=== PATIENT | female | born 1945 | race Caucasian/White ===

== ENCOUNTER 2022-01-20 13:36 | Emergency (ER) | payer MEDICARE ==
[~2022-01-20 13:36] MED LIST: Iopamidol 370 76% 100 ML VIAL ONE
[2022-01-20 15:13] LABS: #Basophils 0.1 thou/uL (0.0-0.2); #Eosinphils 0.1 thou/uL (0.0-0.7); #Monocytes 0.7 thou/uL (0.11-0.59); %Basophils 0.8 % (0.0-1.0); %Eosinophils 0.4 % (0.0-10.0); %Lymphocytes 12.8 % (21.0-51.0); %Monocytes 4.2 % (0.0-10.0); %Neutrophils 81.8 % (42.0-75.0); Hemoglobin 13.5 g/dL (12.0-16.0); Mean Corpuscular HGB CONC 30.3 g/dL (32.0-36.0); Mean Corpuscular Hemoglobin 22.1 pg (27.0-31.0); Mean Corpuscular Volume 72.7 fL (78.0-98.0); Mean Platelet Volume 6.5 fL (7.4-10.4); Platelet Count 344 thou/uL (130-400); Red Blood Cell (RBC) Count 6.14 mill/uL (4.20-5.40); White Blood Cell (WBC) Count 15.9 thou/uL (4.8-10.8)
[2022-01-20 15:25] LABS: ALT (SGPT) 26 U/L (8-55); AST (SGOT) 20 U/L (5-34); Alkaline Phosphatase 49 U/L (40-110); Anion Gap 17 mmol/L (10-20); BUN (Urea Nitrogen) Less than 4 mg/dL (9.8-20.1); Bilirubin, Total 0.5 mg/dL (0.2-1.2); Calc. Creatinine Clearance 0 mL/min (70-130); Calcium 9.8 mg/dL (7.8-10.44); Carbon Dioxide 25 mmol/L (23-31); Chloride 90 mmol/L (98-107); Globulin 3.1 g/dL (2.4-3.5); Glucose 96 mg/dL (83-110); Potassium 4.2 mmol/L (3.5-5.1); Protein, Total 7.1 g/dL (5.8-8.1); Sodium 128 mmol/L (136-145)
[2022-01-20 15:42] LABS: Microcytosis SLIGHT = 6-15 cells (100X) (0-5/hpf); Polychromasia SLIGHT = 2-3 cells (100X) (0-2/hpf)
[2022-01-20 15:51] LABS: Prothrombin Time 13.1 sec (12.0-14.7)
[2022-01-20] MEDS ORDERED: HYDROcodone/Acetaminophen 5/325 mg Tablet ONE (16:21)
[2022-01-20] MEDS ORDERED: Sodium Chloride 0.9% 1,000 ML ONE (17:19)
[2022-01-20] MEDS ORDERED: Morphine 10 MG/ML VIAL ONE (17:19)
[2022-01-20] MEDS ORDERED: Morphine 4 MG/ML VIAL ONE ×2 (17:20→22:47)
[2022-01-20] MEDS ORDERED: Morphine 2 MG/ML VIAL ONE (17:21)
[2022-01-20] MEDS ORDERED: Ondansetron PF 4 MG/2 ML Vial ONE (18:12)
[2022-01-20 21:53] LABS: Bilirubin Negative (Negative); Blood, Urine Trace (Negative); Clarity Clear (Clear); Glucose, Urine (Dipstick) Negative (Negative); Ketone, Urine 40 mg/dL (Negative); Leukocyte Negative (Negative); Nitrite Positive (Negative); Protein, Urine (Dipstick) Negative (Neg-Trace); Urobilinogen 0.2 mg/dL (Less than 2)
[2022-01-20 22:00] LABS: RBC/HPF 0-3 HPF (0-3); Squamous Epithelial 0-3 HPF (0-3); WBC/HPF 0-3 HPF (0-3)
[2022-01-20] MEDS ORDERED: Sodium Chloride 0.9% 100 ML ONE (22:31)
[2022-01-20] MEDS ORDERED: cefTRIAXone\\ROCEPHIN 1 GM VIAL ONE (22:31)
== END 2022-01-20 22:57 | disposition short-term general hospital (02) ==
LOC: MADERS 13:36
DX: E87.1 Hypo-osmolality and hyponatremia (principal); E78.5 Hyperlipidemia, unspecified; W19.XXXA Unspecified fall, initial encounter
CPT/HCPCS: 36415; 70450; 71045; 71260; 72125; 72170; 74177; 80053; 81003; 81015; 83605; 85025; 85610; 87077; 87086; 87186; 96361; 96374; 96375; 96376; G0390; J0696; J2270; J2405; J3490; J7050; Q9967

== ENCOUNTER 2022-01-25 15:25 | Inpatient (IN) | payer MEDICARE ==
[2022-01-25] MEDS ORDERED: Lantiseptic Ointment 130 GM JAR TOP PRN (20:59)
[2022-01-25] MEDS: Benztropine 1 MG TAB PO SCH (21:45)
[2022-01-25] MEDS: OXcarbazepine 150 MG TAB PO SCH (21:46)
[2022-01-25] MEDS: Atorvastatin Calcium 10 MG TAB PO SCH (21:47)
[2022-01-25] MEDS: Lorazepam 1 MG TAB PO PRN (21:48)
[2022-01-25] MEDS: Lantiseptic Ointment 130 GM JAR TOP SCH (23:45)
[2022-01-26 05:26] LABS: #Basophils 0.1 thou/uL (0.0-0.2); #Eosinphils 0.2 thou/uL (0.0-0.7); #Lymphocytes 2.9 thou/uL (1.20-3.40); #Monocytes 0.7 thou/uL (0.11-0.59); #Neutrophils 3.8 thou/uL (1.40-6.50); %Basophils 1.2 % (0.0-1.0); %Eosinophils 3.1 % (0.0-10.0); %Lymphocytes 37.9 % (21.0-51.0); %Monocytes 8.4 % (0.0-10.0); %Neutrophils 49.5 % (42.0-75.0); Hemoglobin 10.6 g/dL (12.0-16.0); Mean Corpuscular Hemoglobin 22.3 pg (27.0-31.0); Mean Corpuscular Volume 71.8 fL (78.0-98.0); Mean Platelet Volume 6.6 fL (7.4-10.4); Platelet Count 261 thou/uL (130-400); RBC Distribution Width 13.9 % (11.5-14.5); Red Blood Cell (RBC) Count 4.77 mill/uL (4.20-5.40); White Blood Cell (WBC) Count 7.8 thou/uL (4.8-10.8)
[2022-01-26 05:27] LABS: ALT (SGPT) 24 U/L (8-55); AST (SGOT) 16 U/L (5-34); Albumin 3.4 g/dL (3.4-4.8); Alkaline Phosphatase 38 U/L (40-110); Anion Gap 15 mmol/L (10-20); Anisocytosis SLIGHT = 6-15 cells (100X) (0-5/hpf); BUN (Urea Nitrogen) Less than 4 mg/dL (9.8-20.1); Bilirubin, Total 0.4 mg/dL (0.2-1.2); Calc. Creatinine Clearance 145 mL/min (70-130); Calcium 8.7 mg/dL (7.8-10.44); Carbon Dioxide 25 mmol/L (23-31); Chloride 94 mmol/L (98-107); Globulin 2.4 g/dL (2.4-3.5); Glucose 90 mg/dL (83-110); Hypochromia SLIGHT = 6-15 cells (100X) (0-5/hpf); MDiff Complete? YES; Microcytosis SLIGHT = 6-15 cells (100X) (0-5/hpf); Platelet Morphology Comment Appears Adequate; Potassium 3.3 mmol/L (3.5-5.1); Protein, Total 5.8 g/dL (5.8-8.1); Sodium 131 mmol/L (136-145)
[2022-01-26] MEDS: Levothyroxine Sodium 50 MCG TAB PO SCH (05:37)
[2022-01-26] MEDS: Lantiseptic Ointment 130 GM JAR TOP SCH ×2 (08:11→21:34)
[2022-01-26] MEDS: OXcarbazepine 150 MG TAB PO SCH ×2 (08:11→21:28)
[2022-01-26] MEDS ORDERED: risperiDONE 1 MG TAB PO SCH (09:00)
[2022-01-26] MEDS: Acetaminophen 325 MG TAB PO PRN ×2 (12:03→16:42)
[2022-01-26] MEDS: Potassium Chloride 10 MEQ TAB PO SCH (16:40)
[2022-01-26] MEDS: Ferrous Sulfate 325 MG TAB PO SCH (16:40)
[2022-01-26] MEDS: risperiDONE 1 MG TAB PO SCH (21:27)
[2022-01-26] MEDS: Lorazepam 1 MG TAB PO PRN (21:28)
[2022-01-26] MEDS: Atorvastatin Calcium 10 MG TAB PO SCH (21:28)
[2022-01-26] MEDS: Benztropine 1 MG TAB PO SCH (21:29)
[2022-01-27 05:38] LABS: Anion Gap 16 mmol/L (10-20); BUN (Urea Nitrogen) Less than 4 mg/dL (9.8-20.1); Calc. Creatinine Clearance 150 mL/min (70-130); Calcium 8.8 mg/dL (7.8-10.44); Carbon Dioxide 25 mmol/L (23-31); Chloride 95 mmol/L (98-107); Glucose 85 mg/dL (83-110); Potassium 3.5 mmol/L (3.5-5.1); Sodium 132 mmol/L (136-145)
[2022-01-27] MEDS: Levothyroxine Sodium 50 MCG TAB PO SCH (05:55)
[2022-01-27] MEDS: Potassium Chloride 10 MEQ TAB PO SCH ×2 (09:29→16:41)
[2022-01-27] MEDS: Ferrous Sulfate 325 MG TAB PO SCH ×2 (09:30→16:41)
[2022-01-27] MEDS: OXcarbazepine 150 MG TAB PO SCH ×2 (09:30→21:51)
[2022-01-27] MEDS: Acetaminophen 325 MG TAB PO PRN ×3 (09:37→21:53)
[2022-01-27] MEDS: Lantiseptic Ointment 130 GM JAR TOP SCH ×2 (10:29→22:00)
[2022-01-27] MEDS: Atorvastatin Calcium 10 MG TAB PO SCH (21:50)
[2022-01-27] MEDS: Benztropine 1 MG TAB PO SCH (21:51)
[2022-01-27] MEDS: risperiDONE 1 MG TAB PO SCH (21:52)
[2022-01-27] MEDS: Lorazepam 1 MG TAB PO PRN (21:54)
[2022-01-28] MEDS: Levothyroxine Sodium 50 MCG TAB PO SCH (06:09)
[2022-01-28] MEDS: OXcarbazepine 150 MG TAB PO SCH ×2 (08:39→21:01)
[2022-01-28] MEDS: Potassium Chloride 10 MEQ TAB PO SCH ×2 (08:39→16:33)
[2022-01-28] MEDS: Ferrous Sulfate 325 MG TAB PO SCH ×2 (08:40→16:32)
[2022-01-28] MEDS: Acetaminophen 325 MG TAB PO PRN ×2 (08:40→15:07)
[2022-01-28] MEDS: Lantiseptic Ointment 130 GM JAR TOP SCH ×2 (08:46→21:02)
[2022-01-28] MEDS ORDERED: Clotrimazole 1% Cream 15 GM TUBE TOP PRN (16:30)
[2022-01-28] MEDS: Phenazopyridine HCl 97.5 MG TABLET PO PRN ×2 (16:32→21:01)
[2022-01-28] MEDS: Lorazepam 1 MG TAB PO PRN (18:27)
[2022-01-28] MEDS: risperiDONE 1 MG TAB PO SCH (20:59)
[2022-01-28] MEDS: Benztropine 1 MG TAB PO SCH (20:59)
[2022-01-28] MEDS: Atorvastatin Calcium 10 MG TAB PO SCH (21:00)
[2022-01-28] MEDS: Clotrimazole 1% Cream 15 GM TUBE TOP SCH (21:02)
[2022-01-29] MEDS: Acetaminophen 325 MG TAB PO PRN ×3 (02:44→14:16)
[2022-01-29] MEDS: Levothyroxine Sodium 50 MCG TAB PO SCH (05:15)
[2022-01-29] MEDS: Phenazopyridine HCl 97.5 MG TABLET PO PRN ×3 (05:29→22:09)
[2022-01-29] MEDS: Potassium Chloride 10 MEQ TAB PO SCH ×2 (08:10→17:41)
[2022-01-29] MEDS: Lorazepam 1 MG TAB PO PRN ×2 (08:10→22:10)
[2022-01-29] MEDS: OXcarbazepine 150 MG TAB PO SCH ×2 (08:10→22:09)
[2022-01-29] MEDS: Ferrous Sulfate 325 MG TAB PO SCH (08:14)
[2022-01-29] MEDS: Lantiseptic Ointment 130 GM JAR TOP SCH ×2 (08:15→22:13)
[2022-01-29] MEDS: Clotrimazole 1% Cream 15 GM TUBE TOP SCH ×2 (08:15→22:13)
[2022-01-29] MEDS ORDERED: Gabapentin 300 MG CAP PO SCH (09:30)
[2022-01-29] MEDS: traMADol HCl 50 MG TAB PO PRN (10:00)
[2022-01-29] MEDS: Gabapentin 300 MG CAP PO SCH ×2 (14:17→22:10)
[2022-01-29] MEDS: risperiDONE 1 MG TAB PO SCH (22:09)
[2022-01-29] MEDS: Benztropine 1 MG TAB PO SCH (22:09)
[2022-01-29] MEDS: Atorvastatin Calcium 10 MG TAB PO SCH (22:10)
[2022-01-30 05:29] LABS: Anion Gap 16 mmol/L (10-20); BUN (Urea Nitrogen) 5 mg/dL (9.8-20.1); Calc. Creatinine Clearance 133 mL/min (70-130); Calcium 8.8 mg/dL (7.8-10.44); Carbon Dioxide 25 mmol/L (23-31); Chloride 93 mmol/L (98-107); Glucose 85 mg/dL (83-110); Potassium 4.1 mmol/L (3.5-5.1); Sodium 130 mmol/L (136-145)
[2022-01-30 05:39] LABS: Band 2 % (5-11); Eosinophils 5 % (0-10); Hemoglobin 11.5 g/dL (12.0-16.0); Hypochromia MODERATE=16-30 cells (100X) (0-5/hpf); Lymphocytes 51 % (21-51); MDiff Complete? YES; Mean Corpuscular HGB CONC 31.2 g/dL (32.0-36.0); Mean Corpuscular Hemoglobin 22.3 pg (27.0-31.0); Mean Corpuscular Volume 71.4 fL (78.0-98.0); Mean Platelet Volume 6.4 fL (7.4-10.4); Microcytosis MODERATE=15-30 cells (100X) (0-5/hpf); Monocytes 12 % (0-10); Neutrophil 29 % (42-75); Platelet Count 291 thou/uL (130-400); RBC Distribution Width 14.5 % (11.5-14.5); Reactive Lymphocytes 1 % (0-10); Red Blood Cell (RBC) Count 5.15 mill/uL (4.20-5.40); White Blood Cell (WBC) Count 7.3 thou/uL (4.8-10.8)
[2022-01-30] MEDS: Levothyroxine Sodium 50 MCG TAB PO SCH (05:45)
[2022-01-30] MEDS: Gabapentin 300 MG CAP PO SCH ×3 (08:25→20:53)
[2022-01-30] MEDS: Potassium Chloride 10 MEQ TAB PO SCH ×2 (08:25→16:54)
[2022-01-30] MEDS: OXcarbazepine 150 MG TAB PO SCH ×2 (08:25→20:53)
[2022-01-30] MEDS: Clotrimazole 1% Cream 15 GM TUBE TOP SCH ×2 (08:25→20:54)
[2022-01-30] MEDS: Lantiseptic Ointment 130 GM JAR TOP SCH ×2 (08:26→20:55)
[2022-01-30 09:20] LABS: Iron 131 ug/dL (50-170); Iron Binding Capacity, Total 196 mcg/dL (265-497)
[2022-01-30] MEDS: traMADol HCl 50 MG TAB PO PRN (15:54)
[2022-01-30] MEDS: risperiDONE 1 MG TAB PO SCH (20:53)
[2022-01-30] MEDS: Atorvastatin Calcium 10 MG TAB PO SCH (20:53)
[2022-01-30] MEDS: Benztropine 1 MG TAB PO SCH (20:53)
[2022-01-31] MEDS: Phenazopyridine HCl 97.5 MG TABLET PO PRN ×2 (05:36→17:21)
[2022-01-31] MEDS: Levothyroxine Sodium 50 MCG TAB PO SCH (05:36)
[2022-01-31] MEDS: Lantiseptic Ointment 130 GM JAR TOP SCH ×2 (05:41→20:08)
[2022-01-31] MEDS: Clotrimazole 1% Cream 15 GM TUBE TOP SCH ×2 (05:42→21:26)
[2022-01-31] MEDS: Acetaminophen 325 MG TAB PO PRN (08:23)
[2022-01-31] MEDS: OXcarbazepine 150 MG TAB PO SCH ×2 (08:24→20:07)
[2022-01-31] MEDS: Gabapentin 300 MG CAP PO SCH ×3 (08:24→20:07)
[2022-01-31] MEDS: Potassium Chloride 10 MEQ TAB PO SCH ×2 (08:25→17:22)
[2022-01-31] MEDS: traMADol HCl 50 MG TAB PO PRN (17:22)
[2022-01-31] MEDS: Benztropine 1 MG TAB PO SCH (20:06)
[2022-01-31] MEDS: Atorvastatin Calcium 10 MG TAB PO SCH (20:07)
[2022-01-31] MEDS: risperiDONE 1 MG TAB PO SCH (20:07)
[2022-02-01] MEDS: Levothyroxine Sodium 50 MCG TAB PO SCH (05:20)
[2022-02-01] MEDS: Gabapentin 300 MG CAP PO SCH ×3 (08:33→21:38)
[2022-02-01] MEDS: Potassium Chloride 10 MEQ TAB PO SCH ×2 (08:34→17:12)
[2022-02-01] MEDS: Clotrimazole 1% Cream 15 GM TUBE TOP SCH ×2 (08:34→21:47)
[2022-02-01] MEDS: Phenazopyridine HCl 97.5 MG TABLET PO PRN ×3 (08:34→21:47)
[2022-02-01] MEDS: OXcarbazepine 150 MG TAB PO SCH ×2 (08:34→21:38)
[2022-02-01] MEDS: Lantiseptic Ointment 130 GM JAR TOP SCH ×2 (08:35→21:48)
[2022-02-01] MEDS: traMADol HCl 50 MG TAB PO PRN ×2 (14:16→21:42)
[2022-02-01] MEDS: Atorvastatin Calcium 10 MG TAB PO SCH (21:38)
[2022-02-01] MEDS: Benztropine 1 MG TAB PO SCH (21:38)
[2022-02-01] MEDS: risperiDONE 1 MG TAB PO SCH (21:39)
[2022-02-02] MEDS: Levothyroxine Sodium 50 MCG TAB PO SCH (06:04)
[2022-02-02] MEDS: Gabapentin 300 MG CAP PO SCH ×3 (08:01→20:10)
[2022-02-02] MEDS: Potassium Chloride 10 MEQ TAB PO SCH ×2 (08:01→17:14)
[2022-02-02] MEDS: OXcarbazepine 150 MG TAB PO SCH ×2 (08:02→20:08)
[2022-02-02] MEDS: Acetaminophen 325 MG TAB PO PRN (08:02)
[2022-02-02] MEDS: Clotrimazole 1% Cream 15 GM TUBE TOP SCH ×2 (08:04→23:07)
[2022-02-02] MEDS: Lantiseptic Ointment 130 GM JAR TOP SCH ×2 (08:04→23:06)
[2022-02-02] MEDS: Phenazopyridine HCl 97.5 MG TABLET PO PRN (17:13)
[2022-02-02] MEDS: traMADol HCl 50 MG TAB PO PRN (20:04)
[2022-02-02] MEDS: Benztropine 1 MG TAB PO SCH (20:07)
[2022-02-02] MEDS: Atorvastatin Calcium 10 MG TAB PO SCH (20:07)
[2022-02-02] MEDS: risperiDONE 1 MG TAB PO SCH (20:09)
[2022-02-03] MEDS: Levothyroxine Sodium 50 MCG TAB PO SCH (05:28)
[2022-02-03] MEDS: Phenazopyridine HCl 97.5 MG TABLET PO PRN (07:44)
[2022-02-03] MEDS: Gabapentin 300 MG CAP PO SCH ×3 (07:44→20:21)
[2022-02-03] MEDS: Potassium Chloride 10 MEQ TAB PO SCH ×2 (07:44→16:58)
[2022-02-03] MEDS: traMADol HCl 50 MG TAB PO PRN ×2 (07:45→20:23)
[2022-02-03] MEDS: OXcarbazepine 150 MG TAB PO SCH ×2 (07:45→20:20)
[2022-02-03] MEDS: Clotrimazole 1% Cream 15 GM TUBE TOP SCH (07:47)
[2022-02-03] MEDS: Lantiseptic Ointment 130 GM JAR TOP SCH (07:48)
[2022-02-03] MEDS: Acetaminophen 325 MG TAB PO PRN (16:59)
[2022-02-03] MEDS: Atorvastatin Calcium 10 MG TAB PO SCH (20:22)
[2022-02-03] MEDS: Benztropine 1 MG TAB PO SCH (20:22)
[2022-02-03] MEDS: risperiDONE 1 MG TAB PO SCH (20:24)
[2022-02-04] MEDS: Clotrimazole 1% Cream 15 GM TUBE TOP SCH ×3 (05:49→20:40)
[2022-02-04] MEDS: Levothyroxine Sodium 50 MCG TAB PO SCH (05:49)
[2022-02-04] MEDS: Lantiseptic Ointment 130 GM JAR TOP SCH ×3 (05:51→20:40)
[2022-02-04] MEDS: Acetaminophen 325 MG TAB PO PRN ×2 (08:33→20:34)
[2022-02-04] MEDS: Potassium Chloride 10 MEQ TAB PO SCH ×2 (08:34→16:59)
[2022-02-04] MEDS: Phenazopyridine HCl 97.5 MG TABLET PO PRN ×2 (08:34→17:03)
[2022-02-04] MEDS: Gabapentin 300 MG CAP PO SCH ×3 (08:34→20:20)
[2022-02-04] MEDS: OXcarbazepine 150 MG TAB PO SCH ×2 (08:34→20:19)
[2022-02-04] MEDS: traMADol HCl 50 MG TAB PO PRN ×2 (17:11→23:59)
[2022-02-04] MEDS: Atorvastatin Calcium 10 MG TAB PO SCH (20:18)
[2022-02-04] MEDS: Benztropine 1 MG TAB PO SCH (20:19)
[2022-02-04] MEDS: risperiDONE 1 MG TAB PO SCH (20:20)
[2022-02-05] MEDS: Levothyroxine Sodium 50 MCG TAB PO SCH (05:42)
[2022-02-05] MEDS: Gabapentin 300 MG CAP PO SCH ×3 (08:20→21:14)
[2022-02-05] MEDS: OXcarbazepine 150 MG TAB PO SCH ×2 (08:20→21:15)
[2022-02-05] MEDS: Potassium Chloride 10 MEQ TAB PO SCH ×2 (08:21→17:09)
[2022-02-05] MEDS: Phenazopyridine HCl 97.5 MG TABLET PO PRN ×2 (08:22→15:53)
[2022-02-05] MEDS: Clotrimazole 1% Cream 15 GM TUBE TOP SCH ×2 (08:22→21:17)
[2022-02-05] MEDS: traMADol HCl 50 MG TAB PO PRN ×2 (08:22→15:52)
[2022-02-05] MEDS: Lantiseptic Ointment 130 GM JAR TOP SCH ×2 (08:22→21:16)
[2022-02-05] MEDS: risperiDONE 1 MG TAB PO SCH (21:14)
[2022-02-05] MEDS: Benztropine 1 MG TAB PO SCH (21:14)
[2022-02-05] MEDS: Atorvastatin Calcium 10 MG TAB PO SCH (21:14)
[2022-02-06 05:38] LABS: #Basophils 0.1 thou/uL (0.0-0.2); #Eosinphils 0.3 thou/uL (0.0-0.7); #Lymphocytes 3.9 thou/uL (1.20-3.40); #Monocytes 0.6 thou/uL (0.11-0.59); #Neutrophils 3.9 thou/uL (1.40-6.50); %Basophils 1.5 % (0.0-1.0); %Eosinophils 3.6 % (0.0-10.0); %Lymphocytes 43.9 % (21.0-51.0); %Monocytes 6.9 % (0.0-10.0); %Neutrophils 44.2 % (42.0-75.0); Anisocytosis SLIGHT = 6-15 cells (100X) (0-5/hpf); Hemoglobin 11.2 g/dL (12.0-16.0); MDiff Complete? YES; Mean Corpuscular HGB CONC 30.8 g/dL (32.0-36.0); Mean Corpuscular Hemoglobin 21.9 pg (27.0-31.0); Mean Corpuscular Volume 71.1 fL (78.0-98.0); Mean Platelet Volume 6.3 fL (7.4-10.4); Platelet Count 315 thou/uL (130-400); Platelet Morphology Comment Appears Adequate; White Blood Cell (WBC) Count 8.9 thou/uL (4.8-10.8)
[2022-02-06 05:44] LABS: Anion Gap 15 mmol/L (10-20); BUN (Urea Nitrogen) 7 mg/dL (9.8-20.1); Calc. Creatinine Clearance 135 mL/min (70-130); Calcium 9.1 mg/dL (7.8-10.44); Carbon Dioxide 26 mmol/L (23-31); Chloride 93 mmol/L (98-107); Glucose 83 mg/dL (83-110); Potassium 4.1 mmol/L (3.5-5.1); Sodium 130 mmol/L (136-145)
[2022-02-06] MEDS: Levothyroxine Sodium 50 MCG TAB PO SCH (05:52)
[2022-02-06] MEDS: Phenazopyridine HCl 97.5 MG TABLET PO PRN ×2 (05:52→14:19)
[2022-02-06] MEDS: traMADol HCl 50 MG TAB PO PRN ×3 (05:52→22:38)
[2022-02-06] MEDS ORDERED: Nystatin Cream 15 GM TUBE TOP PRN (08:41)
[2022-02-06] MEDS ORDERED: Polyethylene Glycol 3350 17 GM Packet PO SCH ×2 (08:45→21:00)
[2022-02-06] MEDS ORDERED: Nystatin Cream 15 GM TUBE TOP SCH (09:00)
[2022-02-06] MEDS: Potassium Chloride 10 MEQ TAB PO SCH ×2 (09:10→16:58)
[2022-02-06] MEDS: Gabapentin 300 MG CAP PO SCH ×3 (09:10→20:36)
[2022-02-06] MEDS: Acetaminophen 325 MG TAB PO PRN (09:11)
[2022-02-06] MEDS: OXcarbazepine 150 MG TAB PO SCH ×2 (09:11→20:35)
[2022-02-06] MEDS: Clotrimazole 1% Cream 15 GM TUBE TOP SCH ×2 (09:12→20:37)
[2022-02-06] MEDS: Lantiseptic Ointment 130 GM JAR TOP SCH ×2 (09:12→20:37)
[2022-02-06 13:15] VITALS: BMI 41.3
[2022-02-06] MEDS: risperiDONE 1 MG TAB PO SCH (20:35)
[2022-02-06] MEDS: Benztropine 1 MG TAB PO SCH (20:35)
[2022-02-06] MEDS: Atorvastatin Calcium 10 MG TAB PO SCH (20:35)
[2022-02-07] MEDS: Levothyroxine Sodium 50 MCG TAB PO SCH (05:47)
[2022-02-07] MEDS: Potassium Chloride 10 MEQ TAB PO SCH ×2 (07:49→16:25)
[2022-02-07] MEDS: OXcarbazepine 150 MG TAB PO SCH ×2 (08:00→20:04)
[2022-02-07] MEDS: traMADol HCl 50 MG TAB PO PRN ×2 (08:00→23:05)
[2022-02-07] MEDS: Gabapentin 300 MG CAP PO SCH ×3 (08:01→20:03)
[2022-02-07] MEDS: Lantiseptic Ointment 130 GM JAR TOP SCH ×2 (08:02→20:10)
[2022-02-07] MEDS: Clotrimazole 1% Cream 15 GM TUBE TOP SCH ×2 (08:03→20:10)
[2022-02-07] MEDS: Phenazopyridine HCl 97.5 MG TABLET PO PRN (11:29)
[2022-02-07] MEDS: Acetaminophen 325 MG TAB PO PRN (11:30)
[2022-02-07] MEDS: Benztropine 1 MG TAB PO SCH (20:02)
[2022-02-07] MEDS: Atorvastatin Calcium 10 MG TAB PO SCH (20:02)
[2022-02-07] MEDS: risperiDONE 1 MG TAB PO SCH (20:03)
[2022-02-08] MEDS: Levothyroxine Sodium 50 MCG TAB PO SCH (05:57)
[2022-02-08] MEDS: traMADol HCl 50 MG TAB PO PRN (08:14)
[2022-02-08] MEDS: Potassium Chloride 10 MEQ TAB PO SCH ×2 (08:15→17:00)
[2022-02-08] MEDS: OXcarbazepine 150 MG TAB PO SCH ×2 (08:15→21:58)
[2022-02-08] MEDS: Gabapentin 300 MG CAP PO SCH ×3 (08:16→21:58)
[2022-02-08] MEDS: Lantiseptic Ointment 130 GM JAR TOP SCH ×2 (08:17→22:03)
[2022-02-08] MEDS: Phenazopyridine HCl 97.5 MG TABLET PO PRN ×2 (08:17→21:57)
[2022-02-08] MEDS: Clotrimazole 1% Cream 15 GM TUBE TOP SCH ×2 (08:17→22:02)
[2022-02-08] MEDS: Acetaminophen 325 MG TAB PO PRN (17:00)
[2022-02-08 19:46] VITALS: TEMP 97.8
[2022-02-08] MEDS: Benztropine 1 MG TAB PO SCH (21:57)
[2022-02-08] MEDS: Atorvastatin Calcium 10 MG TAB PO SCH (21:57)
[2022-02-08] MEDS: risperiDONE 1 MG TAB PO SCH (21:58)
[2022-02-09] MEDS: Acetaminophen 325 MG TAB PO PRN ×2 (05:29→13:08)
[2022-02-09] MEDS: Levothyroxine Sodium 50 MCG TAB PO SCH (05:29)
[2022-02-09] MEDS: OXcarbazepine 150 MG TAB PO SCH (08:25)
[2022-02-09] MEDS: Phenazopyridine HCl 97.5 MG TABLET PO PRN (08:25)
[2022-02-09] MEDS: Potassium Chloride 10 MEQ TAB PO SCH (08:25)
[2022-02-09] MEDS: Gabapentin 300 MG CAP PO SCH (08:25)
[2022-02-09] MEDS: Lantiseptic Ointment 130 GM JAR TOP SCH (08:26)
[2022-02-09] MEDS: Clotrimazole 1% Cream 15 GM TUBE TOP SCH (08:26)
[2022-02-09 08:44] VITALS: BP 136/75
== END 2022-02-09 14:40 | disposition home or self-care (01) | DRG 948 ==
LOC: MADMS 18:32
PROVIDERS: ADMIT Family Medicine; ATTEND Family Medicine
PROC: 0T2BX0Z Change Drainage Device in Bladder, External Approach (ICD-10-PCS; principal; 2022-01-29)
DX: R53.81 Other malaise (principal); N39.0 Urinary tract infection, site not specified; Z68.41 Body mass index [BMI] 40.0-44.9, adult; J44.9 Chronic obstructive pulmonary disease, unspecified; F31.9 Bipolar disorder, unspecified; E66.9 Obesity, unspecified; F41.9 Anxiety disorder, unspecified; E03.9 Hypothyroidism, unspecified; E78.5 Hyperlipidemia, unspecified; K80.20 Calculus of gallbladder without cholecystitis without obstruction; R33.9 Retention of urine, unspecified; D64.9 Anemia, unspecified; E87.6 Hypokalemia; Z66 Do not resuscitate; M47.9 Spondylosis, unspecified; G89.29 Other chronic pain; R25.2 Cramp and spasm; Z20.822 Contact with and (suspected) exposure to COVID-19; Z90.710 Acquired absence of both cervix and uterus; Z90.49 Acquired absence of other specified parts of digestive tract; Z99.81 Dependence on supplemental oxygen; Z88.2 Allergy status to sulfonamides; Z88.5 Allergy status to narcotic agent; Z88.0 Allergy status to penicillin
CPT/HCPCS: 36415; 80048; 80053; 82274; 82728; 83540; 83550; 85025; U0003; U0005

== ENCOUNTER 2022-03-01 14:11 | Emergency (ER) | payer MEDICARE ==
[2022-03-01] MEDS ORDERED: Ondansetron PF 4 MG/2 ML Vial ONE (15:32)
[2022-03-01 15:39] LABS: #Basophils 0.1 thou/uL (0.0-0.2); #Eosinphils 0.1 thou/uL (0.0-0.7); #Lymphocytes 2.3 thou/uL (1.20-3.40); #Monocytes 0.5 thou/uL (0.11-0.59); #Neutrophils 4.7 thou/uL (1.40-6.50); %Basophils 1.6 % (0.0-1.0); %Eosinophils 1.6 % (0.0-10.0); %Lymphocytes 29.3 % (21.0-51.0); %Monocytes 6.5 % (0.0-10.0); Hemoglobin 12.1 g/dL (12.0-16.0); Mean Corpuscular HGB CONC 31.7 g/dL (32.0-36.0); Mean Corpuscular Hemoglobin 22.1 pg (27.0-31.0); Mean Corpuscular Volume 69.9 fL (78.0-98.0); Mean Platelet Volume 7.3 fL (7.4-10.4); Platelet Count 296 thou/uL (130-400); RBC Distribution Width 15.8 % (11.5-14.5); Red Blood Cell (RBC) Count 5.45 mill/uL (4.20-5.40); White Blood Cell (WBC) Count 7.7 thou/uL (4.8-10.8)
[2022-03-01 15:40] LABS: Microcytosis SLIGHT = 6-15 cells (100X) (0-5/hpf)
[2022-03-01 15:59] LABS: ALT (SGPT) 29 U/L (8-55); AST (SGOT) 17 U/L (5-34); Alkaline Phosphatase 44 U/L (40-110); Anion Gap 17 mmol/L (10-20); BUN (Urea Nitrogen) 5 mg/dL (9.8-20.1); Bilirubin, Total 0.5 mg/dL (0.2-1.2); CK (CPK) 27 U/L (29-168); Calc. Creatinine Clearance 0 mL/min (70-130); Calcium 8.6 mg/dL (7.8-10.44); Carbon Dioxide 21 mmol/L (23-31); Chloride 88 mmol/L (98-107); Estimated GFR 92; Globulin 2.3 g/dL (2.4-3.5); Glucose 96 mg/dL (83-110); Lipase 20 U/L (8-78); Potassium 4.7 mmol/L (3.5-5.1); Protein, Total 6.3 g/dL (5.8-8.1); Sodium 121 mmol/L (136-145)
[2022-03-01 16:35] LABS: Bilirubin Negative (Negative); Blood, Urine Negative (Negative); Glucose, Urine (Dipstick) Negative (Negative); Ketone, Urine Trace mg/dL (Negative); Leukocyte Negative (Negative); Nitrite Negative (Negative); Protein, Urine (Dipstick) Negative (Neg-Trace); Urobilinogen 0.2 mg/dL (Less than 2)
[2022-03-01 16:50] LABS: Clarity Hazy (Clear)
[2022-03-01 16:51] LABS: Specific Gravity, Urine 1.026 (1.002-1.036)
[2022-03-01] MEDS ORDERED: Ondansetron ODT 4 MG TAB ONE (20:25)
== END 2022-03-01 21:25 | disposition short-term general hospital (02) ==
LOC: MADERS 14:11
DX: E87.1 Hypo-osmolality and hyponatremia (principal); R53.1 Weakness; R11.2 Nausea with vomiting, unspecified; R53.81 Other malaise; E03.9 Hypothyroidism, unspecified; E78.00 Pure hypercholesterolemia, unspecified; Z79.899 Other long term (current) drug therapy
CPT/HCPCS: 51701; 70450; 71045; 80053; 81003; 82550; 83690; 85025; 93005; 94760; 96374; 96376; J2405; Q0162

== ENCOUNTER 2022-03-07 10:14 | Inpatient (IN) | payer MEDICARE ==
[2022-03-07] MEDS ORDERED: Gabapentin 300 MG CAP PO PRN (15:33)
[2022-03-07] MEDS ORDERED: Benztropine 1 MG TAB PO PRN (15:33)
[2022-03-07] MEDS ORDERED: Non-Formulary Item 1 EACH (Benztropine Mesylate [Benztropine Mesylate] 0.5 MG Tablet) PO PRN (17:07)
[2022-03-07] MEDS ORDERED: GABAPENTIN 300 MG PO PRN (17:07)
[2022-03-07] MEDS ORDERED: traMADol HCl 50 MG TAB PO PRN (17:07)
[2022-03-07] MEDS ORDERED: Ondansetron ODT 4 MG TAB PO PRN (17:10)
[2022-03-07] MEDS: Atorvastatin Calcium 10 MG TAB PO SCH (20:46)
[2022-03-07] MEDS: Famotidine 20 MG TAB PO SCH (20:46)
[2022-03-07] MEDS: OXcarbazepine 150 MG TAB PO SCH (20:47)
[2022-03-07] MEDS: Gabapentin 300 MG CAP PO SCH (20:47)
[2022-03-07] MEDS: Potassium Chloride 10 MEQ TAB PO SCH (20:48)
[2022-03-07] MEDS: risperiDONE 1 MG TAB PO SCH (20:48)
[2022-03-07] MEDS: Propranolol 10 MG TAB PO SCH (20:48)
[2022-03-07] MEDS ORDERED: PROPRANOLOL HCL 20 MG PO SCH (21:00)
[2022-03-07] MEDS ORDERED: OXCARBAZEPINE 300 MG PO SCH (21:00)
[2022-03-07] MEDS ORDERED: Atorvastatin Calcium 10 MG TAB PO SCH (21:00)
[2022-03-07] MEDS ORDERED: GABAPENTIN 300 MG PO SCH (21:00)
[2022-03-07] MEDS ORDERED: RISPERIDONE 3 MG PO SCH (21:00)
[2022-03-07] MEDS ORDERED: Potassium Chloride 10 MEQ TAB PO SCH (21:00)
[2022-03-08] MEDS: Levothyroxine Sodium 50 MCG TAB PO SCH (05:53)
[2022-03-08] MEDS: Propranolol 10 MG TAB PO SCH ×2 (08:32→21:36)
[2022-03-08] MEDS: Benztropine 1 MG TAB PO SCH (08:32)
[2022-03-08] MEDS: Potassium Chloride 10 MEQ TAB PO SCH ×2 (08:33→21:36)
[2022-03-08] MEDS: Famotidine 20 MG TAB PO SCH ×2 (08:33→21:37)
[2022-03-08] MEDS: risperiDONE 1 MG TAB PO SCH ×2 (08:33→21:36)
[2022-03-08] MEDS: OXcarbazepine 150 MG TAB PO SCH ×2 (08:34→21:37)
[2022-03-08] MEDS ORDERED: OXCARBAZEPINE 300 MG PO SCH (09:00)
[2022-03-08] MEDS ORDERED: Non-Formulary Item 1 EACH (Benztropine Mesylate [Benztropine Mesylate] 0.5 MG Tablet) PO SCH (09:00)
[2022-03-08] MEDS ORDERED: Non-Formulary Item 1 EACH (Levothyroxine Sodium [Levothyroxine] 50 MCG Capsule) PO SCH (09:00)
[2022-03-08] MEDS ORDERED: Non-Formulary Item 1 EACH (Risperidone [Risperidone] 2 MG Tablet) PO SCH (09:00)
[2022-03-08] MEDS: Gabapentin 300 MG CAP PO SCH ×2 (09:08→21:37)
[2022-03-08] MEDS: Atorvastatin Calcium 10 MG TAB PO SCH (21:37)
[2022-03-08] MEDS: Acetaminophen 325 MG TAB PO PRN (21:38)
[2022-03-09] MEDS: Levothyroxine Sodium 50 MCG TAB PO SCH (07:14)
[2022-03-09] MEDS: Famotidine 20 MG TAB PO SCH ×2 (09:03→21:37)
[2022-03-09] MEDS: Gabapentin 300 MG CAP PO SCH ×2 (09:03→21:38)
[2022-03-09] MEDS: OXcarbazepine 150 MG TAB PO SCH ×2 (09:03→21:39)
[2022-03-09] MEDS: risperiDONE 1 MG TAB PO SCH ×2 (09:04→21:39)
[2022-03-09] MEDS: Benztropine 1 MG TAB PO SCH (09:04)
[2022-03-09] MEDS: Potassium Chloride 10 MEQ TAB PO SCH ×2 (09:05→21:39)
[2022-03-09] MEDS: Propranolol 10 MG TAB PO SCH (09:06)
[2022-03-09] MEDS: Atorvastatin Calcium 10 MG TAB PO SCH (21:37)
[2022-03-09] MEDS: Acetaminophen 325 MG TAB PO PRN (21:40)
[2022-03-10] MEDS: Levothyroxine Sodium 50 MCG TAB PO SCH (06:04)
[2022-03-10] MEDS: Famotidine 20 MG TAB PO SCH ×2 (09:08→21:09)
[2022-03-10] MEDS: Benztropine 1 MG TAB PO SCH (09:08)
[2022-03-10] MEDS: Gabapentin 300 MG CAP PO SCH ×2 (09:08→21:07)
[2022-03-10] MEDS: risperiDONE 1 MG TAB PO SCH ×2 (09:08→21:09)
[2022-03-10] MEDS: Propranolol 10 MG TAB PO SCH (09:09)
[2022-03-10] MEDS: OXcarbazepine 150 MG TAB PO SCH ×2 (09:09→21:08)
[2022-03-10] MEDS: Acetaminophen 325 MG TAB PO PRN (09:09)
[2022-03-10] MEDS: Potassium Chloride 10 MEQ TAB PO SCH ×2 (09:09→21:10)
[2022-03-10] MEDS: Atorvastatin Calcium 10 MG TAB PO SCH (21:09)
[2022-03-11] MEDS: Levothyroxine Sodium 50 MCG TAB PO SCH (06:11)
[2022-03-11] MEDS: Benztropine 1 MG TAB PO SCH (09:15)
[2022-03-11] MEDS: Ascorbic Acid 500 mg Chewable Tablet PO SCH (09:15)
[2022-03-11] MEDS: Cholecalciferol 1,000 UNITS (25 MCG) TAB PO SCH (09:16)
[2022-03-11] MEDS: Zinc Sulfate 220 MG CAP PO SCH (09:16)
[2022-03-11] MEDS: risperiDONE 1 MG TAB PO SCH ×2 (09:16→20:51)
[2022-03-11] MEDS: OXcarbazepine 150 MG TAB PO SCH ×2 (09:16→20:51)
[2022-03-11] MEDS: Famotidine 20 MG TAB PO SCH ×2 (09:16→20:50)
[2022-03-11] MEDS: Propranolol 10 MG TAB PO SCH (09:16)
[2022-03-11] MEDS: Gabapentin 300 MG CAP PO SCH ×2 (09:17→20:49)
[2022-03-11] MEDS: Acetaminophen 325 MG TAB PO PRN (09:17)
[2022-03-11] MEDS: Potassium Chloride 10 MEQ TAB PO SCH ×2 (09:17→20:51)
[2022-03-11] MEDS: Atorvastatin Calcium 10 MG TAB PO SCH (20:50)
[2022-03-12] MEDS: Levothyroxine Sodium 50 MCG TAB PO SCH (06:09)
[2022-03-12] MEDS: Benztropine 1 MG TAB PO SCH (09:15)
[2022-03-12] MEDS: Zinc Sulfate 220 MG CAP PO SCH (09:16)
[2022-03-12] MEDS: Famotidine 20 MG TAB PO SCH ×2 (09:16→21:25)
[2022-03-12] MEDS: OXcarbazepine 150 MG TAB PO SCH ×2 (09:16→21:23)
[2022-03-12] MEDS: Propranolol 10 MG TAB PO SCH (09:16)
[2022-03-12] MEDS: Ascorbic Acid 500 mg Chewable Tablet PO SCH (09:17)
[2022-03-12] MEDS: Cholecalciferol 1,000 UNITS (25 MCG) TAB PO SCH (09:17)
[2022-03-12] MEDS: risperiDONE 1 MG TAB PO SCH ×2 (09:17→21:23)
[2022-03-12] MEDS: Acetaminophen 325 MG TAB PO PRN (09:18)
[2022-03-12] MEDS: Gabapentin 300 MG CAP PO SCH ×2 (09:18→21:24)
[2022-03-12] MEDS: Potassium Chloride 10 MEQ TAB PO SCH ×2 (09:20→21:25)
[2022-03-12] MEDS: Atorvastatin Calcium 10 MG TAB PO SCH (21:24)
[2022-03-12] MEDS: traMADol HCl 50 MG TAB PO PRN (21:50)
[2022-03-13 05:49] LABS: Anion Gap 12 mmol/L (10-20); BUN (Urea Nitrogen) 4 mg/dL (9.8-20.1); Calc. Creatinine Clearance 136 mL/min (70-130); Calcium 8.7 mg/dL (7.8-10.44); Carbon Dioxide 26 mmol/L (23-31); Chloride 91 mmol/L (98-107); Estimated GFR 94; Glucose 88 mg/dL (83-110); Potassium 3.8 mmol/L (3.5-5.1); Sodium 125 mmol/L (136-145)
[2022-03-13] MEDS: Levothyroxine Sodium 50 MCG TAB PO SCH (06:07)
[2022-03-13 06:32] LABS: #Basophils 0.1 thou/uL (0.0-0.2); #Eosinphils 0.2 thou/uL (0.0-0.7); #Monocytes 0.7 thou/uL (0.11-0.59); #Neutrophils 3.5 thou/uL (1.40-6.50); %Basophils 0.8 % (0.0-1.0); %Eosinophils 2.2 % (0.0-10.0); %Lymphocytes 40.6 % (21.0-51.0); %Monocytes 9.4 % (0.0-10.0); %Neutrophils 47.1 % (42.0-75.0); Hemoglobin 11.4 g/dL (12.0-16.0); Mean Corpuscular HGB CONC 31.2 g/dL (32.0-36.0); Mean Corpuscular Hemoglobin 21.9 pg (27.0-31.0); Mean Corpuscular Volume 70.1 fL (78.0-98.0); Mean Platelet Volume 7.4 fL (7.4-10.4); Platelet Count 252 thou/uL (130-400); Red Blood Cell (RBC) Count 5.18 mill/uL (4.20-5.40); White Blood Cell (WBC) Count 7.5 thou/uL (4.8-10.8)
[2022-03-13 06:33] LABS: Anisocytosis SLIGHT = 6-15 cells (100X) (0-5/hpf); Platelet Morphology Comment Appears Adequate
[2022-03-13] MEDS: OXcarbazepine 150 MG TAB PO SCH ×2 (08:53→21:13)
[2022-03-13] MEDS: Gabapentin 300 MG CAP PO SCH ×2 (08:53→21:14)
[2022-03-13] MEDS: Benztropine 1 MG TAB PO SCH (08:54)
[2022-03-13] MEDS: Famotidine 20 MG TAB PO SCH ×2 (08:54→21:13)
[2022-03-13] MEDS: Ascorbic Acid 500 mg Chewable Tablet PO SCH (08:54)
[2022-03-13] MEDS: Zinc Sulfate 220 MG CAP PO SCH (08:54)
[2022-03-13] MEDS: Cholecalciferol 1,000 UNITS (25 MCG) TAB PO SCH (08:54)
[2022-03-13] MEDS: Propranolol 10 MG TAB PO SCH (08:54)
[2022-03-13] MEDS: risperiDONE 1 MG TAB PO SCH ×2 (08:54→21:13)
[2022-03-13] MEDS: Potassium Chloride 10 MEQ TAB PO SCH ×2 (08:54→17:11)
[2022-03-13] MEDS ORDERED: Sodium Chloride 1 GM TAB PO SCH (13:15)
[2022-03-13] MEDS: Sodium Chloride 1 GM TAB PO SCH (21:13)
[2022-03-13] MEDS: Atorvastatin Calcium 10 MG TAB PO SCH (21:14)
[2022-03-14] MEDS: Levothyroxine Sodium 50 MCG TAB PO SCH (05:11)
[2022-03-14] MEDS: OXcarbazepine 150 MG TAB PO SCH ×2 (08:13→21:45)
[2022-03-14] MEDS: Ascorbic Acid 500 mg Chewable Tablet PO SCH (08:14)
[2022-03-14] MEDS: Famotidine 20 MG TAB PO SCH ×2 (08:14→21:44)
[2022-03-14] MEDS: Potassium Chloride 10 MEQ TAB PO SCH ×2 (08:14→17:15)
[2022-03-14] MEDS: Sodium Chloride 1 GM TAB PO SCH ×2 (08:14→21:44)
[2022-03-14] MEDS: Propranolol 10 MG TAB PO SCH (08:14)
[2022-03-14] MEDS: Benztropine 1 MG TAB PO SCH (08:14)
[2022-03-14] MEDS: Gabapentin 300 MG CAP PO SCH ×2 (08:15→21:46)
[2022-03-14] MEDS: risperiDONE 1 MG TAB PO SCH ×2 (08:15→21:48)
[2022-03-14] MEDS: Cholecalciferol 1,000 UNITS (25 MCG) TAB PO SCH (08:15)
[2022-03-14] MEDS: Zinc Sulfate 220 MG CAP PO SCH (08:15)
[2022-03-14] MEDS: Atorvastatin Calcium 10 MG TAB PO SCH (21:44)
[2022-03-14] MEDS: traMADol HCl 50 MG TAB PO PRN (21:45)
[2022-03-15] MEDS: Levothyroxine Sodium 50 MCG TAB PO SCH (05:44)
[2022-03-15] MEDS: Zinc Sulfate 220 MG CAP PO SCH (08:16)
[2022-03-15] MEDS: OXcarbazepine 150 MG TAB PO SCH ×2 (08:16→20:21)
[2022-03-15] MEDS: risperiDONE 1 MG TAB PO SCH ×2 (08:16→20:22)
[2022-03-15] MEDS: Benztropine 1 MG TAB PO SCH (08:16)
[2022-03-15] MEDS: Cholecalciferol 1,000 UNITS (25 MCG) TAB PO SCH (08:17)
[2022-03-15] MEDS: Propranolol 10 MG TAB PO SCH (08:17)
[2022-03-15] MEDS: Famotidine 20 MG TAB PO SCH ×2 (08:17→20:23)
[2022-03-15] MEDS: Gabapentin 300 MG CAP PO SCH ×2 (08:17→20:23)
[2022-03-15] MEDS: Potassium Chloride 10 MEQ TAB PO SCH ×2 (08:17→17:09)
[2022-03-15] MEDS: Ascorbic Acid 500 mg Chewable Tablet PO SCH (08:17)
[2022-03-15] MEDS: Sodium Chloride 1 GM TAB PO SCH ×2 (08:17→20:23)
[2022-03-15] MEDS: Atorvastatin Calcium 10 MG TAB PO SCH (20:22)
[2022-03-15] MEDS: traMADol HCl 50 MG TAB PO PRN (20:27)
[2022-03-16] MEDS: Levothyroxine Sodium 50 MCG TAB PO SCH (05:28)
[2022-03-16] MEDS: Gabapentin 300 MG CAP PO SCH ×2 (08:13→22:04)
[2022-03-16] MEDS: Propranolol 10 MG TAB PO SCH (08:13)
[2022-03-16] MEDS: Ascorbic Acid 500 mg Chewable Tablet PO SCH (08:13)
[2022-03-16] MEDS: Benztropine 1 MG TAB PO SCH (08:14)
[2022-03-16] MEDS: Sodium Chloride 1 GM TAB PO SCH ×2 (08:14→22:03)
[2022-03-16] MEDS: risperiDONE 1 MG TAB PO SCH ×2 (08:14→22:03)
[2022-03-16] MEDS: Famotidine 20 MG TAB PO SCH ×2 (08:14→22:03)
[2022-03-16] MEDS: OXcarbazepine 150 MG TAB PO SCH (08:14)
[2022-03-16] MEDS: Zinc Sulfate 220 MG CAP PO SCH (08:14)
[2022-03-16] MEDS: Potassium Chloride 10 MEQ TAB PO SCH ×2 (08:15→17:12)
[2022-03-16] MEDS: Cholecalciferol 1,000 UNITS (25 MCG) TAB PO SCH (08:15)
[2022-03-16 10:45] LABS: Anion Gap 11 mmol/L (10-20); BUN (Urea Nitrogen) 4 mg/dL (9.8-20.1); Calc. Creatinine Clearance 136 mL/min (70-130); Calcium 8.7 mg/dL (7.8-10.44); Carbon Dioxide 26 mmol/L (23-31); Chloride 91 mmol/L (98-107); Estimated GFR 93; Glucose 119 mg/dL (83-110); Sodium 124 mmol/L (136-145)
[2022-03-16] MEDS ORDERED: OXcarbazepine 150 MG TAB PO SCH (21:00)
[2022-03-16] MEDS: Atorvastatin Calcium 10 MG TAB PO SCH (22:03)
[2022-03-16] MEDS: Acetaminophen 325 MG TAB PO PRN (22:04)
[2022-03-17] MEDS: Levothyroxine Sodium 50 MCG TAB PO SCH (05:53)
[2022-03-17] MEDS: Ascorbic Acid 500 mg Chewable Tablet PO SCH (08:14)
[2022-03-17] MEDS: Potassium Chloride 10 MEQ TAB PO SCH ×2 (08:14→17:24)
[2022-03-17] MEDS: risperiDONE 1 MG TAB PO SCH ×2 (08:15→21:13)
[2022-03-17] MEDS: Benztropine 1 MG TAB PO SCH (08:15)
[2022-03-17] MEDS: Sodium Chloride 1 GM TAB PO SCH ×2 (08:15→21:13)
[2022-03-17] MEDS: Cholecalciferol 1,000 UNITS (25 MCG) TAB PO SCH (08:15)
[2022-03-17] MEDS: Famotidine 20 MG TAB PO SCH ×2 (08:17→21:14)
[2022-03-17] MEDS: Gabapentin 300 MG CAP PO SCH ×2 (08:18→21:12)
[2022-03-17] MEDS: Propranolol 10 MG TAB PO SCH (08:18)
[2022-03-17] MEDS: Zinc Sulfate 220 MG CAP PO SCH (08:19)
[2022-03-17] MEDS: Acetaminophen 325 MG TAB PO PRN ×2 (08:19→21:11)
[2022-03-17] MEDS: traMADol HCl 50 MG TAB PO PRN (17:28)
[2022-03-17] MEDS: Atorvastatin Calcium 10 MG TAB PO SCH (21:12)
[2022-03-18] MEDS: Levothyroxine Sodium 50 MCG TAB PO SCH ×2 (05:07→05:13)
[2022-03-18] MEDS: Propranolol 10 MG TAB PO SCH (08:36)
[2022-03-18] MEDS: Benztropine 1 MG TAB PO SCH (08:37)
[2022-03-18] MEDS: Ascorbic Acid 500 mg Chewable Tablet PO SCH (08:37)
[2022-03-18] MEDS: risperiDONE 1 MG TAB PO SCH ×2 (08:37→20:49)
[2022-03-18] MEDS: Famotidine 20 MG TAB PO SCH ×2 (08:38→20:49)
[2022-03-18] MEDS: Zinc Sulfate 220 MG CAP PO SCH (08:38)
[2022-03-18] MEDS: Potassium Chloride 10 MEQ TAB PO SCH ×2 (08:38→17:07)
[2022-03-18] MEDS: Cholecalciferol 1,000 UNITS (25 MCG) TAB PO SCH (08:38)
[2022-03-18] MEDS: Gabapentin 300 MG CAP PO SCH ×2 (08:38→20:49)
[2022-03-18] MEDS: Sodium Chloride 1 GM TAB PO SCH ×2 (08:38→20:50)
[2022-03-18] MEDS: Acetaminophen 325 MG TAB PO PRN ×2 (08:38→17:07)
[2022-03-18] MEDS: Atorvastatin Calcium 10 MG TAB PO SCH (20:49)
[2022-03-19] MEDS: Levothyroxine Sodium 50 MCG TAB PO SCH (06:18)
[2022-03-19] MEDS: Ascorbic Acid 500 mg Chewable Tablet PO SCH (08:16)
[2022-03-19] MEDS: Potassium Chloride 10 MEQ TAB PO SCH ×2 (08:17→17:04)
[2022-03-19] MEDS: risperiDONE 1 MG TAB PO SCH ×2 (08:17→21:13)
[2022-03-19] MEDS: Gabapentin 300 MG CAP PO SCH ×2 (08:17→21:12)
[2022-03-19] MEDS: Propranolol 10 MG TAB PO SCH (08:17)
[2022-03-19] MEDS: Sodium Chloride 1 GM TAB PO SCH (08:18)
[2022-03-19] MEDS: Famotidine 20 MG TAB PO SCH ×2 (08:18→21:12)
[2022-03-19] MEDS: Benztropine 1 MG TAB PO SCH (08:18)
[2022-03-19] MEDS: Cholecalciferol 1,000 UNITS (25 MCG) TAB PO SCH (08:18)
[2022-03-19] MEDS: Acetaminophen 325 MG TAB PO PRN ×2 (08:18→17:04)
[2022-03-19] MEDS: Zinc Sulfate 220 MG CAP PO SCH (08:19)
[2022-03-19 16:41] LABS: Anion Gap 14 mmol/L (10-20); BUN (Urea Nitrogen) 7 mg/dL (9.8-20.1); Calc. Creatinine Clearance 125 mL/min (70-130); Calcium 9.2 mg/dL (7.8-10.44); Carbon Dioxide 26 mmol/L (23-31); Chloride 101 mmol/L (98-107); Estimated GFR 92; Glucose 112 mg/dL (83-110); Potassium 4.4 mmol/L (3.5-5.1); Sodium 137 mmol/L (136-145)
[2022-03-19] MEDS: Atorvastatin Calcium 10 MG TAB PO SCH (21:12)
[2022-03-20] MEDS: Levothyroxine Sodium 50 MCG TAB PO SCH (06:14)
[2022-03-20] MEDS: risperiDONE 1 MG TAB PO SCH ×2 (08:22→22:03)
[2022-03-20] MEDS: Cholecalciferol 1,000 UNITS (25 MCG) TAB PO SCH (08:23)
[2022-03-20] MEDS: Potassium Chloride 10 MEQ TAB PO SCH ×2 (08:23→17:04)
[2022-03-20] MEDS: Zinc Sulfate 220 MG CAP PO SCH (08:23)
[2022-03-20] MEDS: Famotidine 20 MG TAB PO SCH ×2 (08:23→22:05)
[2022-03-20] MEDS: Propranolol 10 MG TAB PO SCH (08:23)
[2022-03-20] MEDS: Gabapentin 300 MG CAP PO SCH ×2 (08:23→22:03)
[2022-03-20] MEDS: Ascorbic Acid 500 mg Chewable Tablet PO SCH (08:24)
[2022-03-20] MEDS: Benztropine 1 MG TAB PO SCH (08:24)
[2022-03-20] MEDS: Sodium Chloride 1 GM TAB PO SCH (08:24)
[2022-03-20] MEDS ORDERED: OXcarbazepine 150 MG TAB PO SCH (09:00)
[2022-03-20 12:55] VITALS: BMI 38.8
[2022-03-20] MEDS: Atorvastatin Calcium 10 MG TAB PO SCH (22:03)
[2022-03-20] MEDS: OXcarbazepine 150 MG TAB PO SCH (22:03)
[2022-03-20] MEDS: traMADol HCl 50 MG TAB PO PRN (22:04)
[2022-03-21] MEDS: Levothyroxine Sodium 50 MCG TAB PO SCH (05:55)
[2022-03-21] MEDS: Famotidine 20 MG TAB PO SCH ×2 (08:11→21:30)
[2022-03-21] MEDS: Benztropine 1 MG TAB PO SCH (08:12)
[2022-03-21] MEDS: Potassium Chloride 10 MEQ TAB PO SCH ×2 (08:12→16:58)
[2022-03-21] MEDS: Ascorbic Acid 500 mg Chewable Tablet PO SCH (08:14)
[2022-03-21] MEDS: Propranolol 10 MG TAB PO SCH (08:14)
[2022-03-21] MEDS: Zinc Sulfate 220 MG CAP PO SCH (08:14)
[2022-03-21] MEDS: OXcarbazepine 150 MG TAB PO SCH ×2 (08:14→21:31)
[2022-03-21] MEDS: Gabapentin 300 MG CAP PO SCH ×2 (08:14→21:30)
[2022-03-21] MEDS: risperiDONE 1 MG TAB PO SCH ×2 (08:14→21:30)
[2022-03-21] MEDS: Sodium Chloride 1 GM TAB PO SCH (08:15)
[2022-03-21] MEDS: Cholecalciferol 1,000 UNITS (25 MCG) TAB PO SCH (08:15)
[2022-03-21] MEDS: Atorvastatin Calcium 10 MG TAB PO SCH (21:29)
[2022-03-21] MEDS: traMADol HCl 50 MG TAB PO PRN (21:33)
[2022-03-22] MEDS: Levothyroxine Sodium 50 MCG TAB PO SCH (05:26)
[2022-03-22 05:41] LABS: Anion Gap 14 mmol/L (10-20); BUN (Urea Nitrogen) 7 mg/dL (9.8-20.1); Calc. Creatinine Clearance 123 mL/min (70-130); Carbon Dioxide 25 mmol/L (23-31); Chloride 102 mmol/L (98-107); Estimated GFR 92; Glucose 81 mg/dL (83-110); Potassium 4.4 mmol/L (3.5-5.1); Sodium 137 mmol/L (136-145)
[2022-03-22] MEDS: Benztropine 1 MG TAB PO SCH (08:33)
[2022-03-22] MEDS: Zinc Sulfate 220 MG CAP PO SCH (08:33)
[2022-03-22] MEDS: Potassium Chloride 10 MEQ TAB PO SCH ×2 (08:33→16:50)
[2022-03-22] MEDS: risperiDONE 1 MG TAB PO SCH ×2 (08:34→20:56)
[2022-03-22] MEDS: Propranolol 10 MG TAB PO SCH (08:34)
[2022-03-22] MEDS: Gabapentin 300 MG CAP PO SCH ×2 (08:34→20:56)
[2022-03-22] MEDS: OXcarbazepine 150 MG TAB PO SCH ×2 (08:34→20:56)
[2022-03-22] MEDS: Cholecalciferol 1,000 UNITS (25 MCG) TAB PO SCH (08:34)
[2022-03-22] MEDS: Sodium Chloride 1 GM TAB PO SCH (08:35)
[2022-03-22] MEDS: Ascorbic Acid 500 mg Chewable Tablet PO SCH (08:35)
[2022-03-22] MEDS: Famotidine 20 MG TAB PO SCH ×2 (08:35→20:56)
[2022-03-22] MEDS: Acetaminophen 325 MG TAB PO PRN (20:53)
[2022-03-22] MEDS: Atorvastatin Calcium 10 MG TAB PO SCH (20:55)
[2022-03-23] MEDS: Levothyroxine Sodium 50 MCG TAB PO SCH (06:00)
[2022-03-23 07:05] VITALS: BP 123/74; TEMP 97.9
[2022-03-23] MEDS: Ascorbic Acid 500 mg Chewable Tablet PO SCH (08:53)
[2022-03-23] MEDS: Benztropine 1 MG TAB PO SCH (08:53)
[2022-03-23] MEDS: Potassium Chloride 10 MEQ TAB PO SCH (08:53)
[2022-03-23] MEDS: risperiDONE 1 MG TAB PO SCH (08:53)
[2022-03-23] MEDS: OXcarbazepine 150 MG TAB PO SCH (08:53)
[2022-03-23] MEDS: Zinc Sulfate 220 MG CAP PO SCH (08:53)
[2022-03-23] MEDS: Propranolol 10 MG TAB PO SCH (08:53)
[2022-03-23] MEDS: Sodium Chloride 1 GM TAB PO SCH (08:53)
[2022-03-23] MEDS: Gabapentin 300 MG CAP PO SCH (08:54)
[2022-03-23] MEDS: Cholecalciferol 1,000 UNITS (25 MCG) TAB PO SCH (08:54)
[2022-03-23] MEDS: Famotidine 20 MG TAB PO SCH (08:54)
== END 2022-03-23 09:45 | disposition home or self-care (01) | DRG 947 ==
LOC: MADMS 10:46
PROVIDERS: ADMIT Family Medicine; ATTEND Family Medicine
PROC: 8E0ZXY6 Isolation (ICD-10-PCS; principal; 2022-03-09)
DX: R53.81 Other malaise (principal); U07.1 COVID-19; E87.1 Hypo-osmolality and hyponatremia; F31.9 Bipolar disorder, unspecified; R25.1 Tremor, unspecified; E66.9 Obesity, unspecified; J44.9 Chronic obstructive pulmonary disease, unspecified; I10 Essential (primary) hypertension; F41.9 Anxiety disorder, unspecified; E03.9 Hypothyroidism, unspecified; M25.511 Pain in right shoulder; E78.5 Hyperlipidemia, unspecified; Z88.5 Allergy status to narcotic agent; Z88.0 Allergy status to penicillin; Z88.2 Allergy status to sulfonamides; Z79.899 Other long term (current) drug therapy; Z90.49 Acquired absence of other specified parts of digestive tract; Z90.710 Acquired absence of both cervix and uterus; Z98.890 Other specified postprocedural states; Z68.37 Body mass index [BMI] 37.0-37.9, adult
CPT/HCPCS: 36415; 80048; 85025; U0003; U0005

== ENCOUNTER 2022-03-30 06:50 | Emergency (ER) | payer MEDICARE ==
[2022-03-30] MEDS ORDERED: Ondansetron PF 4 MG/2 ML Vial ONE (07:02)
[2022-03-30 07:48] LABS: #Eosinphils 0.1 thou/uL (0.0-0.7); #Lymphocytes 1.7 thou/uL (1.20-3.40); #Monocytes 0.4 thou/uL (0.11-0.59); #Neutrophils 5.3 thou/uL (1.40-6.50); %Basophils 0.6 % (0.0-1.0); %Eosinophils 1.6 % (0.0-10.0); %Lymphocytes 22.8 % (21.0-51.0); %Monocytes 5.3 % (0.0-10.0); %Neutrophils 69.7 % (42.0-75.0); Mean Corpuscular HGB CONC 30.1 g/dL (32.0-36.0); Mean Corpuscular Hemoglobin 22.9 pg (27.0-31.0); Mean Corpuscular Volume 75.9 fL (78.0-98.0); Mean Platelet Volume 7.9 fL (7.4-10.4); Platelet Count 221 thou/uL (130-400); RBC Distribution Width 18.7 % (11.5-14.5); Red Blood Cell (RBC) Count 5.26 mill/uL (4.20-5.40); White Blood Cell (WBC) Count 7.5 thou/uL (4.8-10.8)
[2022-03-30 07:51] LABS: Base Excess-Venous -1.7 mmol/L (-2.0 to 3.0); Bicarbonate (HCO3v) 24.3 mmol/L (22.0-28.0); CO2 Tension (PvCO2) 44.8 mmHg (42.0-51.0); Calcium, Ionized 1.17 mmol/L (1.15-1.33); Chloride 98 mmol/L (98-107); Hemoglobin - Calc 14.5 g/dL (12.0-16.0); Potassium 3.5 mmol/L (3.5-5.1); Sodium 135 mmol/L (138-145); T. Carbon Dioxide 25.7 mmol/L (22.0-28.0); vO2 Saturation-calc 93.3 % (60.0-85.0)
[2022-03-30 07:54] LABS: Anisocytosis SLIGHT = 6-15 cells (100X) (0-5/hpf); Microcytosis SLIGHT = 6-15 cells (100X) (0-5/hpf); Platelet Morphology Comment Appears Adequate; Poikilocytosis SLIGHT = 6-15 cells (100X) (0-5/hpf)
[2022-03-30 08:00] LABS: ALT (SGPT) 36 U/L (8-55); AST (SGOT) 16 U/L (5-34); Albumin 3.8 g/dL (3.4-4.8); Alkaline Phosphatase 46 U/L (40-110); Anion Gap 13 mmol/L (10-20); BUN (Urea Nitrogen) 7 mg/dL (9.8-20.1); Bilirubin, Total 0.2 mg/dL (0.2-1.2); Calc. Creatinine Clearance 0 mL/min (70-130); Carbon Dioxide 25 mmol/L (23-31); Chloride 100 mmol/L (98-107); Estimated GFR 91; Globulin 2.8 g/dL (2.4-3.5); Glucose 114 mg/dL (83-110); Lipase 17 U/L (8-78); Magnesium 1.7 mg/dL (1.6-2.6); Potassium 3.7 mmol/L (3.5-5.1); Protein, Total 6.6 g/dL (5.8-8.1); Sodium 134 mmol/L (136-145)
[2022-03-30 08:01] LABS: Bilirubin Small (Negative); Blood, Urine Moderate (Negative); Clarity Cloudy (Clear); Glucose, Urine (Dipstick) Negative (Negative); Ketone, Urine Trace mg/dL (Negative); Leukocyte Small (Negative); Nitrite Positive (Negative); Protein, Urine (Dipstick) 100 mg/dL (Neg-Trace); Urobilinogen 0.2 mg/dL (Less than 2); pH, Urine 5.5 (5.0-9.0)
[2022-03-30 08:06] LABS: Specific Gravity, Urine 1.035 (1.002-1.036)
[2022-03-30 08:09] LABS: Bacteria/HPF 3+ HPF (None Seen); Squamous Epithelial 0-3 HPF (0-3); WBC/HPF Greater than 50 HPF (0-3)
[2022-03-30] MEDS ORDERED: cefTRIAXone\\ROCEPHIN 2 GM VIAL ONE (08:37)
[2022-03-30] MEDS ORDERED: Sodium Chloride 0.9% 100 ML ONE (08:37)
[2022-03-30] MEDS ORDERED: Sodium Chloride 0.9% 1,000 ML ONE (13:53)
[2022-03-30] MEDS ORDERED: Ondansetron ODT 4 MG TAB SL PRN (17:00)
[2022-03-30] MEDS ORDERED: Acetaminophen 325 MG TAB PO PRN (17:00)
[2022-03-30] MEDS ORDERED: Ondansetron PF 4 MG/2 ML Vial IVP PRN (17:00)
[2022-03-30] MEDS ORDERED: Sodium Chloride 0.9% 1,000 ML IV SCH (17:00)
== END 2022-03-30 15:17 | disposition short-term general hospital (02) ==
LOC: MADERS 06:50
DX: G93.40 Encephalopathy, unspecified (principal); N39.0 Urinary tract infection, site not specified; E03.9 Hypothyroidism, unspecified; E66.9 Obesity, unspecified; Z79.899 Other long term (current) drug therapy
CPT/HCPCS: 36415; 51701; 71045; 80053; 81003; 81015; 82330; 82435; 82803; 83605; 83690; 83735; 83880; 84132; 84295; 84443; 84484; 85014; 85025; 85379; 87040; 87086; 93005; 96361; 96365; 96375; J0696; J2405; J3490; J7050; J7620

== ENCOUNTER 2022-04-14 18:06 | Inpatient (IN) | payer MEDICARE ==
[2022-04-14] MEDS ORDERED: traMADol HCl 50 MG TAB PO PRN (18:27)
[2022-04-14] MEDS: Atorvastatin Calcium 40 MG TAB PO SCH (22:26)
[2022-04-14] MEDS: OXcarbazepine 150 MG TAB PO SCH (22:27)
[2022-04-14] MEDS: Gabapentin 300 MG CAP PO SCH (22:27)
[2022-04-14] MEDS: risperiDONE 1 MG TAB PO SCH (22:28)
[2022-04-14] MEDS: Sodium Chloride 1 GM TAB PO SCH (22:28)
[2022-04-14] MEDS: Magnesium Oxide 400 MG TAB PO SCH (22:28)
[2022-04-15] MEDS: Levothyroxine Sodium 50 MCG TAB PO SCH (05:27)
[2022-04-15 08:03] LABS: ALT (SGPT) 67 U/L (8-55); AST (SGOT) 32 U/L (5-34); Albumin 3.5 g/dL (3.4-4.8); Alkaline Phosphatase 47 U/L (40-110); Anion Gap 14 mmol/L (10-20); BUN (Urea Nitrogen) 9 mg/dL (9.8-20.1); Bilirubin, Total 0.4 mg/dL (0.2-1.2); Calc. Creatinine Clearance 124 mL/min (70-130); Calcium 9.2 mg/dL (7.8-10.44); Carbon Dioxide 26 mmol/L (23-31); Chloride 94 mmol/L (98-107); Estimated GFR 93; Globulin 2.7 g/dL (2.4-3.5); Glucose 89 mg/dL (83-110); Potassium 4.3 mmol/L (3.5-5.1); Protein, Total 6.2 g/dL (5.8-8.1); Sodium 130 mmol/L (136-145)
[2022-04-15 08:13] LABS: #Eosinphils 0.1 thou/uL (0.0-0.7); #Lymphocytes 1.9 thou/uL (1.20-3.40); #Monocytes 0.5 thou/uL (0.11-0.59); #Neutrophils 4.3 thou/uL (1.40-6.50); %Basophils 0.6 % (0.0-1.0); %Eosinophils 1.6 % (0.0-10.0); %Lymphocytes 27.8 % (21.0-51.0); %Monocytes 6.6 % (0.0-10.0); %Neutrophils 63.4 % (42.0-75.0); Anisocytosis SLIGHT = 6-15 cells (100X) (0-5/hpf); Hemoglobin 11.8 g/dL (12.0-16.0); MDiff Complete? YES; Mean Corpuscular HGB CONC 31.2 g/dL (32.0-36.0); Mean Corpuscular Hemoglobin 23.3 pg (27.0-31.0); Mean Corpuscular Volume 74.7 fL (78.0-98.0); Mean Platelet Volume 7.8 fL (7.4-10.4); Microcytosis SLIGHT = 6-15 cells (100X) (0-5/hpf); Platelet Count 244 thou/uL (130-400); RBC Distribution Width 17.2 % (11.5-14.5); Red Blood Cell (RBC) Count 5.05 mill/uL (4.20-5.40); White Blood Cell (WBC) Count 6.8 thou/uL (4.8-10.8)
[2022-04-15] MEDS ORDERED: Acetaminophen 325 MG TAB PO PRN (08:31)
[2022-04-15] MEDS: Gabapentin 300 MG CAP PO SCH ×3 (08:34→21:08)
[2022-04-15] MEDS: OXcarbazepine 150 MG TAB PO SCH ×2 (08:34→21:11)
[2022-04-15] MEDS: Benztropine 1 MG TAB PO SCH (08:35)
[2022-04-15] MEDS: Sodium Chloride 1 GM TAB PO SCH ×2 (08:35→21:11)
[2022-04-15] MEDS: Magnesium Oxide 400 MG TAB PO SCH ×2 (08:35→21:11)
[2022-04-15] MEDS: risperiDONE 1 MG TAB PO SCH ×2 (08:35→21:10)
[2022-04-15] MEDS: Amlodipine 5 MG TAB PO SCH (08:36)
[2022-04-15] MEDS: Propranolol 10 MG TAB PO SCH (08:36)
[2022-04-15] MEDS: Nystatin Cream 15 GM TUBE TOP SCH ×2 (08:44→21:11)
[2022-04-15] MEDS: Atorvastatin Calcium 40 MG TAB PO SCH (21:10)
[2022-04-16] MEDS: Levothyroxine Sodium 50 MCG TAB PO SCH (07:09)
[2022-04-16] MEDS: Nystatin Cream 15 GM TUBE TOP SCH ×2 (08:17→20:09)
[2022-04-16] MEDS: OXcarbazepine 150 MG TAB PO SCH ×2 (09:47→20:07)
[2022-04-16] MEDS: risperiDONE 1 MG TAB PO SCH ×2 (09:48→20:08)
[2022-04-16] MEDS: Sodium Chloride 1 GM TAB PO SCH ×2 (09:48→20:09)
[2022-04-16] MEDS: Gabapentin 300 MG CAP PO SCH ×3 (09:48→20:08)
[2022-04-16] MEDS: Magnesium Oxide 400 MG TAB PO SCH ×2 (09:48→20:08)
[2022-04-16] MEDS: Propranolol 10 MG TAB PO SCH (09:48)
[2022-04-16] MEDS: Amlodipine 5 MG TAB PO SCH (09:49)
[2022-04-16] MEDS: Benztropine 1 MG TAB PO SCH (09:50)
[2022-04-16] MEDS: Atorvastatin Calcium 40 MG TAB PO SCH (20:08)
[2022-04-17] MEDS: Levothyroxine Sodium 50 MCG TAB PO SCH (06:08)
[2022-04-17 07:59] VITALS: BMI 36.8
[2022-04-17] MEDS: Benztropine 1 MG TAB PO SCH (09:11)
[2022-04-17] MEDS: Sodium Chloride 1 GM TAB PO SCH ×2 (09:12→20:49)
[2022-04-17] MEDS: Propranolol 10 MG TAB PO SCH (09:12)
[2022-04-17] MEDS: OXcarbazepine 150 MG TAB PO SCH ×2 (09:13→20:49)
[2022-04-17] MEDS: Amlodipine 5 MG TAB PO SCH (09:13)
[2022-04-17] MEDS: risperiDONE 1 MG TAB PO SCH ×2 (09:13→20:49)
[2022-04-17] MEDS: Gabapentin 300 MG CAP PO SCH ×3 (09:13→20:50)
[2022-04-17] MEDS: Magnesium Oxide 400 MG TAB PO SCH ×2 (09:13→20:49)
[2022-04-17] MEDS: Nystatin Cream 15 GM TUBE TOP SCH ×2 (09:14→20:49)
[2022-04-17] MEDS ORDERED: Benztropine 1 MG TAB PO PRN (17:34)
[2022-04-17] MEDS: Atorvastatin Calcium 40 MG TAB PO SCH (20:48)
[2022-04-18] MEDS: Levothyroxine Sodium 50 MCG TAB PO SCH (05:49)
[2022-04-18 07:03] VITALS: BP 128/75; TEMP 98.7
[2022-04-18] MEDS: Propranolol 10 MG TAB PO SCH (08:16)
[2022-04-18] MEDS: OXcarbazepine 150 MG TAB PO SCH (08:16)
[2022-04-18] MEDS: Benztropine 1 MG TAB PO SCH (08:17)
[2022-04-18] MEDS: Gabapentin 300 MG CAP PO SCH (08:17)
[2022-04-18] MEDS: risperiDONE 1 MG TAB PO SCH (08:18)
[2022-04-18] MEDS: Amlodipine 5 MG TAB PO SCH (08:18)
[2022-04-18] MEDS: Nystatin Cream 15 GM TUBE TOP SCH (08:19)
[2022-04-18] MEDS: Sodium Chloride 1 GM TAB PO SCH (08:19)
[2022-04-18] MEDS: Magnesium Oxide 400 MG TAB PO SCH (08:19)
[2022-04-18 14:28] LABS: Anion Gap 13 mmol/L (10-20); BUN (Urea Nitrogen) 12 mg/dL (9.8-20.1); Calc. Creatinine Clearance 117 mL/min (70-130); Calcium 9.3 mg/dL (7.8-10.44); Carbon Dioxide 27 mmol/L (23-31); Chloride 100 mmol/L (98-107); Estimated GFR 91; Glucose 119 mg/dL (83-110); Potassium 4.6 mmol/L (3.5-5.1); Sodium 135 mmol/L (136-145)
== END 2022-04-18 15:20 | disposition hospice, home (50) | DRG 948 ==
LOC: MADMS 18:06
PROVIDERS: ADMIT Family Medicine; ATTEND Family Medicine
DX: R53.1 Weakness (principal); E22.2 Syndrome of inappropriate secretion of antidiuretic hormone; R53.81 Other malaise; E03.9 Hypothyroidism, unspecified; F31.9 Bipolar disorder, unspecified; F41.9 Anxiety disorder, unspecified; I10 Essential (primary) hypertension; E78.5 Hyperlipidemia, unspecified; E66.9 Obesity, unspecified; G25.0 Essential tremor; D64.9 Anemia, unspecified; Z68.36 Body mass index [BMI] 36.0-36.9, adult; Z88.5 Allergy status to narcotic agent; Z88.0 Allergy status to penicillin; Z90.710 Acquired absence of both cervix and uterus; Z90.721 Acquired absence of ovaries, unilateral; Z90.89 Acquired absence of other organs; Z98.890 Other specified postprocedural states; Z84.2 Family history of other diseases of the genitourinary system; Z88.2 Allergy status to sulfonamides; Z79.899 Other long term (current) drug therapy; Z79.890 Hormone replacement therapy
CPT/HCPCS: 36415; 80048; 80053; 85025